=== PATIENT | female | born 1975 | race Caucasian/White ===

== ENCOUNTER → 2023-06-17 18:56 | Outpatient (REF) | payer OTHER, SELFPAY | LOC: WDC 18:56 | PROVIDERS: ATTENDING PHYSICIAN Family Medicine | DX: Z12.31 Encounter for screening mammogram for malignant neoplasm of breast (principal) | CPT/HCPCS: 77063; 77067 ==

== ENCOUNTER → 2024-06-29 16:38 | Outpatient (REF) | payer OTHER, SELFPAY | LOC: WDC 16:38 | PROVIDERS: ATTENDING PHYSICIAN Family Medicine; FAMILY PHYSICIAN Family Medicine | DX: Z12.31 Encounter for screening mammogram for malignant neoplasm of breast (principal) | CPT/HCPCS: 77063; 77067 ==